=== PATIENT | female | born 1960 ===

== ENCOUNTER 2020-09-15 08:00 | Outpatient (CLI) | payer OTHER ==
[~2020-09-15 08:00] MED LIST: CEFADROXIL500 MG PO; CELEBREX100 MG PO; PERCOCET 5/3251 TAB PO; SKELAXIN800 MG PO
== END 2020-09-15 08:30 | disposition home or self-care (01) ==
LOC: PPH VACUNA 08:00
DX: Z23 Encounter for immunization (principal)

== ENCOUNTER 2020-10-14 08:00 | Outpatient (CLI) | payer OTHER | END 2020-10-14 08:30 | disposition home or self-care (01) | LOC: PPH VACUNA 08:00 | DX: Z23 Encounter for immunization (principal) ==